=== PATIENT | female | born 2000 | race American Indian/Alaskan Native ===

== ENCOUNTER 2020-04-22 18:53 | Emergency (ER) | payer SELFPAY ==
[2020-04-22 20:48] VITALS: BP 114/68
--- NOTE | 2020-04-22 21:01 | Event Note ---
ED Screening Note ED Screening Note: lower abd pain 3 weeks ago Alvaro davison two weeks ago macrobid no dysuria pressure with urination +vaginal discharge, white +sexually active pmhx ovarian cyst no allergies to meds LNMP: 03/24/2020 This initial assessment/diagnostic orders/clinical plan/treatment(s) is/are subject to change based on patients health status, clinical progression and re- assessment by fellow clinical providers in the ED. Further treatment and workup at subsequent clinical providers discretion. Patient/guardian urged not to elope from the ED as their condition may be serious if not clinically assessed and managed. Initial orders include: UA, urine preg
[2020-04-22 21:08] LABS: Bilirubin,Urine NEG (Negative); Blood,Urine NEG (Negative); Color,Urine Straw (Yellow); Mucus,Urine FEW /HPF; Protein,Urine <15 mg/dL mg/dL (Negative); Urobilinogen,Urine < 2.0 mg/dL (<2.0)
[2020-04-22 21:49] LABS: HCG Qualitative,Urine Negative (Negative)
== END 2020-04-23 01:50 | disposition left against medical advice (07) ==
LOC: ED 18:53
DX: R10.9 Unspecified abdominal pain (principal); Z53.21 Procedure and treatment not carried out due to patient leaving prior to being seen by health care provider
CPT/HCPCS: 81001; 81025